=== PATIENT | female | born 1990 | race Caucasian/White ===

== ENCOUNTER 2021-07-03 17:13 | Emergency (ER) | payer MEDICAID, SELFPAY ==
[2021-07-03 17:16] VITALS: BP 110/56; PULSE 73; RESP 16; TEMP 36.8; O2SAT 98; BMI 35.6
--- NOTE | 2021-07-03 17:33 | ED.RN ---
PT. COMPLAINS OF HEAD/NECK PAIN. UPON ARRIVAL. ATTEMPTED TO PLACE PT. IN [place]. PT. REFUSES.
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
== END 2021-07-03 18:00 | disposition left against medical advice (07) ==
LOC: ED 17:59
PROVIDERS: Emergency Provider Emergency Medicine
DX: S70.312A Abrasion, left thigh, initial encounter (principal); F17.210 Nicotine dependence, cigarettes, uncomplicated; V86.65XA Passenger of 3- or 4- wheeled all-terrain vehicle (ATV) injured in nontraffic accident, initial encounter; Y93.I9 Activity, other involving external motion; Y92.89 Other specified places as the place of occurrence of the external cause; Y99.8 Other external cause status
CPT/HCPCS: 99284